=== PATIENT | female | born 1970 | race Caucasian/White ===

== ENCOUNTER 2017-02-10 20:04 | Emergency (ER) | payer MEDICAID | END 2017-02-10 23:25 | disposition left against medical advice (07) | LOC: D.ER 20:04 | DX: S40.811A Abrasion of right upper arm, initial encounter (principal); X58.XXXA Exposure to other specified factors, initial encounter; Y93.89 Activity, other specified; Y92.89 Other specified places as the place of occurrence of the external cause ==